=== PATIENT | female | born 1960 ===

== ENCOUNTER 2017-05-30 11:57 | Emergency (ER) | payer OTHER ==
[2017-05-30] MEDS ORDERED: Emtricitabine-Tenofovir 200 mg-300 mg Tab PO STA (12:45)
[2017-05-30] MEDS ORDERED: cefTRIAXone (Rocephin) 250 mg Inj IM STA (12:49)
[2017-05-30 13:07] LABS: RBC URINE 2 /hpf (0-3); URINE BACTERIA OCC (<OCC); URINE BILIRUBIN NEGATIVE (NEGATIVE); URINE BLOOD NEGATIVE (NEGATIVE); URINE COLOR Yellow (YELLOW); URINE GLUCOSE (UA) 2+ mg/dL (Normal); URINE KETONE 1+ mg/dL (NEGATIVE); URINE LEUKOCYTE ESTERASE 1+ Leu/uL (Negative); URINE PROTEIN NEGATIVE (NEGATIVE); WBC URINE 24 /hpf (0-5)
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
[2017-05-30 18:23] VITALS: BP 161/116; PULSE 83; RESP 17; TEMP 97.7; O2SAT 98
== END 2017-05-30 18:23 | disposition home or self-care (01) ==
LOC: C.ER 11:57
DX: N39.0 Urinary tract infection, site not specified (principal); T76.21XA Adult sexual abuse, suspected, initial encounter